=== PATIENT | male | born 1975 | race Caucasian/White ===

== ENCOUNTER 2020-05-01 08:55 | Day surgery (SDC) | payer BC ==
[~2020-05-01] VITALS: Ht 175.3 cm; Wt 95.0 kg
[~2020-05-01 08:55] MED LIST: ALPR.25 PO; LAMO100 PO; OLAN2.5 PO
--- NOTE | 2020-05-01 09:16 | NUR ---
05/01/20 0916 Karoline Tanner TETRACAINE INSTILED IN EACH EYE PER DR ORDERS.
== END 2020-05-01 11:38 | disposition home or self-care (01) ==
LOC: ORSCSDS 08:55
PROVIDERS: Ophthalmology
PROC: 08RJ3JZ Replacement of Right Lens with Synthetic Substitute, Percutaneous Approach (ICD-10-PCS; principal; 2020-05-01 10:00)
PROC: 08RK3JZ Replacement of Left Lens with Synthetic Substitute, Percutaneous Approach (ICD-10-PCS; principal; 2020-05-01 10:00)
DX: H25.11 Age-related nuclear cataract, right eye (principal); H25.12 Age-related nuclear cataract, left eye; F17.210 Nicotine dependence, cigarettes, uncomplicated; Z79.899 Other long term (current) drug therapy
CPT/HCPCS: A9270; J1100; J2001; J2250; J2405; J2704; J3010; J3301; J7040; V2632

== ENCOUNTER → 2024-08-29 | Outpatient (CLI) | payer BC ==
[2024-08-29 14:49] LABS: Stool Occult Bld Immuno 1 Negative (NEGATIVE)
== END | disposition home or self-care (01) ==
LOC: LAB SHORT 10:00 → LAB 10:00 → LAB FUT 08-01 14:15
PROVIDERS: Internal Medicine Gastroenterology
DX: Z12.11 Encounter for screening for malignant neoplasm of colon (principal)
CPT/HCPCS: G0328